=== PATIENT | female | born 1990 | race Caucasian/White ===

== ENCOUNTER 2017-12-07 12:57 | Emergency (ER) | payer BC ==
[2017-12-07 17:06] LABS: ABS Basophils 0 10^3/ul (0-0.2); ABS Eosinophils 0 10^3/ul (0-0.6); ABS Lymphocytes 1.8 10^3/ul (1.0-4.8); ABS Monocytes 0.3 10^3/ul (0-0.8); ABS Neutrophils 2.4 10^3/ul (1.5-7.7); Hematocrit 40 % (35-47); Hemoglobin 13.7 g/dl (12.0-16.0); Mean Corpuscular HGB Conc 34 g/dl (31-36); Mean Corpuscular Hemoglobin 29 pg (27-31); Mean Corpuscular Volume 86 fL (80-97); Mean Platelet Volume 7.9 um3 (7.4-10.4); Platelet Count 215 10^3/ul (150-450); Red Blood Count 4.65 10^6/ul (4.0-5.4); Red Cell Distribution Width 13 % (10.5-15); White Blood Count 4.6 10^3/ul (3.5-10.8)
[2017-12-07 17:07] LABS: ABS Nucleated RBC 0 10^3/ul; Eosinophil % 0.1 % (0-6); Lymphocyte % 39.9 % (25-47); Nucleated Red Blood Cells % 0
[2017-12-07 17:21] LABS: EGFR Non-African American 91.3 (>60)
[2017-12-07 17:23] LABS: INR 1.11 (0.77-1.02)
[2017-12-07 17:42] VITALS: BP 98/59
--- NOTE | 2017-12-07 17:54 | ED ---
Alyssa Peguero Thomas, scribed for Mario Lo MD on 12/07/17 at 1618 . GI/ HPI - HPI Summary HPI Summary: The patient is a 26 year old female who has been having diarrhea and burning epigastric pain for the last two months. Prior to this week, she has had one episode of bloody diarrhea. The patient went to her primary care nurse practitioner a few days ago, where labs were obtained but no rectal examination was done. She was given a prescription for an antacid and an antispasmodic. The patient was instructed to go to the emergency room if she had any more blood in her stool. Today, the patient noted blood coming from her rectum after passing a hard stool, so she came to the emergency department. The patient did have some rectal pain when she passed the stool. - History of Current Complaint Chief Complaint: EDAbdPain Time Seen by Provider: 12/07/17 15:52 Stated Complaint: BLOODY STOOL Hx Obtained From: Patient Onset/Duration: Started Weeks Ago, Still Present Timing: Intermittent Current Severity: Moderate Pain Intensity: 2 Location of Pain: Epigastric Pain Characteristics: Burning Associated Signs and Symptoms: Positive: Other: - Bloody diarrhea, epigastric pain, blood in stool, hard stool, rectal pain Aggravating Factor(s): Bowel Movement - hard stool Alleviating Factor(s): Nothing - Allergy/Home Medications Allergies/Adverse Reactions: Allergies Allergy/AdvReac Type Severity Reaction Status Date / Time chocolate flavor Allergy Vomiting Verified 12/07/17 13:04 Home Medications: Home Medications Calcium Carbonate [Ra Antacid] 500 mg PO DAILY 12/07/17 [History Confirmed 12/07] Cyclobenzaprine TAB* [Flexeril 10 MG TAB*] 10 mg PO BID PRN 12/07/17 [History Confirmed 12/07/17] Spironolactone TAB* [Aldactone TAB*] 50 mg PO QAM 12/07/17 [History Confirmed ] PMH/Surg Hx/FS Hx/Imm Hx Sensory History: Denies: Hx Deafness Opthamlomology History: Denies: Hx Legally Blind EENT History: Denies: Hx Deafness Infectious Disease History: No Infectious Disease History: Denies: Traveled Outside the [place] in Last 30 Days - Family History Known Family History: Negative: Blood Disorder - Social History Alcohol Use: Weekly Alcohol Amount: <3 Substance Use Type: Reports: Marijuana Smoking Status (MU): Never Smoked Tobacco Review of Systems Negative: Fever Negative: Epistaxis Positive: Diarrhea - bloody, Other - Epigastric pain, blood in stool, hard stool , rectal pain All Other Systems Reviewed And Are Negative: Yes Physical Exam - Summary Physical Exam Summary: Appearance: The patient is well-nourished in no acute distress and in no acute pain. Skin: The skin is warm and dry and skin color reflects adequate perfusion. HEENT: The head is normocephalic and atraumatic. The pupils are equal and reactive. The conjunctivae are clear and without drainage. Nares are patent and without drainage. Mouth reveals moist mucous membranes and the throat is without erythema and exudate. The external ears are intact. The ear canals are patent and without drainage. The tympanic membranes are intact. Neck: the neck is supple with full range of motion and non-tender. There are no carotid bruits. There is no neck vein distension. Respiratory: Chest is non-tender. Lungs are clear to auscultation and breath sounds are symmetrical and equal. Cardiovascular: Heart is regular rate and rhythm. There is no murmur or rub auscultated. There is no peripheral edema and pulses are symmetrical and equal. Abdomen: The abdomen is soft and non-tender. There are normal bowel sounds heard in all four quadrants and there is no organomegaly palpated. Rectal: There are not any hemorrhoids. There is no stool on the glove. There is no fissue appreciated. Female asset management lead was present in the exam room. Musculoskeletal: There is no back tenderness noted. Extremities are non-tender with full range of motion. There is good capillary refill. There is no peripheral edema or calf tenderness elicited. Neurological: Patient is alert and oriented to person, place and time. The patient has symmetrical motor strength in all four extremities. Cranial nerves are grossly intact. Deep tendon reflexes are symmetrical and equal in all four extremities. Psychiatric: The patient has an appropriate affect and does not exhibit any anxiety or depression. Triage Information Reviewed: Yes Vital Signs On Initial Exam: Initial Vitals Temp Pulse Resp BP Pulse Ox 98.3 F 64 15 104/64 99 12/07/17 13:04 12/07/17 13:04 12/07/17 13:04 12/07/17 13:04 12/07/17 13:04 Vital Signs Reviewed: Yes Diagnostics - Vital Signs Vital Signs Temp Pulse Resp BP Pulse Ox 12/07/17 16:00 55 100 12/07/17 15:55 56 118/74 100 12/07/17 13:04 98.3 F 64 15 104/64 99 - Laboratory Lab Results: Lab Results 12/07/17 12/07/17 12/07/17 Range/Units 16:55 16:55 16:55 WBC 4.6 (3.5-10.8) 10^3/ul RBC 4.65 (4.0-5.4) 10^6/ul Hgb 13.7 (12.0-16.0) g/dl Hct 40 (35-47) % MCV 86 (80-97) fL MCH 29 (27-31) pg MCHC 34 (31-36) g/dl RDW 13 (10.5-15) % Plt Count 215 (150-450) 10^3/ul MPV 7.9 (7.4-10.4) um3 Neut % (Auto) 52.0 (38-83) % Lymph % (Auto) 39.9 (25-47) % Edwards % (Auto) 7.4 H (0-7) % Eos % (Auto) 0.1 (0-6) % Baso % (Auto) 0.6 (0-2) % Absolute Neuts (auto) 2.4 (1.5-7.7) 10^3/ul Absolute Lymphs (auto) 1.8 (1.0-4.8) 10^3/ul Absolute Monos (auto) 0.3 (0-0.8) 10^3/ul Absolute Eos (auto) 0 (0-0.6) 10^3/ul Absolute Basos (auto) 0 (0-0.2) 10^3/ul Absolute Nucleated RBC 0 10^3/ul Nucleated RBC % 0 INR (Anticoag Therapy) 1.11 H (0.77-1.02) Sodium 139 (139-145) mmol/L Potassium 3.8 (3.5-5.0) mmol/L Chloride 106 (101-111) mmol/L Carbon Dioxide 25 (22-32) mmol/L Anion Gap 8 (2-11) mmol/L BUN 11 (6-24) mg/dL Creatinine 0.77 (0.51-0.95) mg/dL Est GFR ( Amer) 117.5 (>60) Est GFR (Non-Af Amer) 91.3 (>60) BUN/Creatinine Ratio 14.3 (8-20) Glucose 80 (70-100) mg/dL Calcium 9.1 (8.6-10.3) mg/dL Total Bilirubin 0.50 (0.2-1.0) mg/dL AST 12 L (13-39) U/L ALT 10 (7-52) U/L Alkaline Phosphatase 57 (34-104) U/L Total Protein 6.9 (6.4-8.9) g/dL Albumin 4.1 (3.2-5.2) g/dL Globulin 2.8 (2-4) g/dL Albumin/Globulin Ratio 1.5 (1-3) Result Diagrams: 12/07/17 16:55 12/07/17 16:55 Lab Statement: Any lab studies that have been ordered have been reviewed, and results considered in the medical decision making process. Re-Evaluation - Re-Evaluation First Eval Re-Evaluation Time: 17:43 Comment: Results discussed. Patient will be discharged. GIGU Course/Dx - Course Course Of Treatment: Ms. Razo had no evidence of injury or pathology on rectal exam and her H&H hasn't dropped. I reccommended F/U with PMD. - Diagnoses Provider Diagnoses: Rectal bleed Discharge - Sign-Out/Discharge Documenting (check all that apply): Discharge - Discharge Plan Condition: Stable Disposition: HOME Patient Education Materials: Rectal Bleeding (ED) Referrals: Triny Melara NP [Primary Care Provider] - 3 Days Additional Instructions: Follow up with your nurse practitioner in three days. Return to the emergency department for any new or worsening symptoms. - Billing Disposition and Condition Condition: STABLE Disposition: HOME The documentation as recorded by the Alyssa ruffin Thomas accurately reflects the service I personally performed and the decisions made by me, Mario Lo MD.
== END 2017-12-07 17:55 | disposition home or self-care (01) ==
LOC: ED 12:57
DX: K62.5 Hemorrhage of anus and rectum (principal)
CPT/HCPCS: 36415; 80053; 82270; 85025; 85610; 99282